=== PATIENT | female | born 1950 | race Hispanic/Latino ===

== ENCOUNTER 2018-07-07 14:52 | Outpatient (CLI) | payer BC | END 2018-07-07 14:53 | disposition home or self-care (01) | LOC: BICMAMMO 14:52 | PROVIDERS: ATTEND Family Medicine | DX: Z12.31 Encounter for screening mammogram for malignant neoplasm of breast (principal) | CPT/HCPCS: 77063; 77067 ==

== ENCOUNTER 2018-08-29 12:57 | Outpatient (CLI) | payer BC ==
--- NOTE | 2018-08-29 16:43 | RAD ---
PA AND LATERAL VIEWS CHEST: 08/28/18 HISTORY: Dyspnea. FINDINGS: Comparison made with exam of 01/03/18. The heart size is normal. The lungs are well expanded with evidence of old granulomatous disease and stable pleural and parenchymal scarring. No focal areas of consolidation, pneumothoraces or pleural e ffusions are identified. IMPRESSION: Stable exam. No acute process. POS: [facility]
== END 2018-08-29 12:58 | disposition home or self-care (01) ==
LOC: RAD 12:57
PROVIDERS: ATTEND Internal Medicine Critical Care Medicine
DX: R06.00 Dyspnea, unspecified (principal)
CPT/HCPCS: 71046

== ENCOUNTER 2018-11-06 15:03 | Emergency (ER) | payer BC ==
[2018-11-06 15:37] LABS: #Lymphocytes 1.5 thou/uL (1.20-3.40); #Monocytes 0.3 thou/uL (0.11-0.59); #Neutrophils 7.4 thou/uL (1.40-6.50); %Basophils 0.4 % (0.0-1.0); %Eosinophils 0.5 % (0.0-10.0); %Lymphocytes 15.8 % (21.0-51.0); %Neutrophils 80.2 % (42.0-75.0); Hemoglobin 11.5 g/dL (12.0-16.0); Mean Corpuscular HGB CONC 33.7 g/dL (32.0-36.0); Mean Platelet Volume 8.3 fL (7.4-10.4); Platelet Count 217 thou/uL (130-400); RBC Distribution Width 12.2 % (11.5-14.5); White Blood Cell (WBC) Count 9.3 thou/uL (4.8-10.8)
[2018-11-06 15:56] LABS: ALT (SGPT) 14 U/L (8-55); AST (SGOT) 24 U/L (5-34); Albumin 4.4 g/dL (3.4-4.8); Alkaline Phosphatase 92 U/L (40-150); Anion Gap 13 mmol/L (10-20); BUN (Urea Nitrogen) 20 mg/dL (9.8-20.1); Bilirubin, Total 1.2 mg/dL (0.2-1.2); Calc. Creatinine Clearance 0 mL/min (70-130); Calcium 9.2 mg/dL (7.8-10.44); Carbon Dioxide 28 mmol/L (23-31); Chloride 96 mmol/L (98-107); Estimated GFR-MDRD 44; Globulin 3.1 g/dL (2.4-3.5); Glucose 93 mg/dL (80-115); Lipase 5 U/L (8-78); Potassium 3.4 mmol/L (3.5-5.1); Protein, Total 7.5 g/dL (6.0-8.3); Sodium 134 mmol/L (136-145)
[2018-11-06] MEDS ORDERED: Ondansetron PF 4 MG/2 ML Vial ONE (16:07)
[2018-11-06] MEDS ORDERED: Morphine 4 MG/ML VIAL ONE (16:07)
[2018-11-06 16:08] LABS: Bilirubin Negative (Negative); Blood, Urine Small (Negative); Clarity CLEAR (Clear); Glucose, Urine (Dipstick) Negative (Negative); Leukocyte Negative (Negative); Nitrite Negative (Negative); Protein, Urine (Dipstick) Negative (Neg-Trace); Specific Gravity, Urine 1.015 (1.002-1.036); Urobilinogen 0.2 mg/dL (0.2-1.0)
[2018-11-06 16:11] LABS: Bacteria/HPF None Seen HPF (None Seen); Hyaline Casts/LPF 0-3 HYALINE CAST LPF (0-3 Hyaline); Squamous Epithelial 0-3 HPF (0-3); WBC/HPF 0-3 HPF (0-3)
[2018-11-06] MEDS ORDERED: Iopamidol 370 76% 50 ML VIAL FS ONE (17:03)
[2018-11-06] MEDS ORDERED: ISOVUE-370 76%-LOCM 1 ML ONE (17:03)
--- NOTE | 2018-11-06 19:12 | CT ---
CT ABDOMEN AND PELVIS WITH CONTRAST: HISTORY: Abdominal pain, right lower quadrant. TECHNIQUE: Contrast enhanced CT images of the abdomen and pelvis are obtained after the administration of IV and oral contrast. FINDINGS: Areas of patchy density are seen in the right middle lobe and portions of the anterior aspect of the left lower lobe. These may represent areas of pneumonia. The liver and spleen are unremarkable, except for some small calcified granulomas. The gallbladder has been surgically removed. The adrenal glands are unremarkable. The kidneys demonstrate no definite evidence of parenchymal masses. Mild right-sided hydronephrosis is seen. The right ureter, mid and distal aspects, is of normal caliber. There is an approximately 2 to 3 mm area of calcification seen on axial image #76. This is slightly more inferior than one would expect for the course of the right ureter, thus suggesting that this may be outside the right ureter; however, the associated mild right-sided hydronephrosis is suggestive t hat this calcification may be within the right ureter. It may be worth while to consider obtaining d elayed images of the pelvis, to help determine the course of this possible distal right ureteral calc ulus versus phlebolith. The patient has already received the IV contrast; therefore, delayed images would not require additional contrast. There does appear to be some inflammatory change in the terminal ileum. There is circumferential thi ckening of the cecum, concerning for a cecal inflammatory process (typhlitis). Other possibilities c ould include circumferential neoplasm of the cecum. Correlate with direct visualization. The SMA an d celiac are patent. No evidence of lymphadenopathy is seen. IMPRESSION: 1. Thickened terminal ileum with a circumferentially thickened cecum, concerning for inflammatory or neoplastic process. 2. Small area of calcification in the right pelvis, likely outside the right ureter; however, the pr oximal right ureter and renal pelvis are mildly dilated. POS: [facility]
== END 2018-11-06 19:45 | disposition home or self-care (01) ==
LOC: ERS 15:03
DX: K52.9 Noninfective gastroenteritis and colitis, unspecified (principal); I10 Essential (primary) hypertension; E78.5 Hyperlipidemia, unspecified; Z79.899 Other long term (current) drug therapy
CPT/HCPCS: 36415; 74177; 80053; 81003; 81015; 83690; 85025; 96361; 96374; 96375; J2270; J2405; Q9966; Q9967

== ENCOUNTER 2019-07-09 14:46 | Outpatient (CLI) | payer BC ==
--- NOTE | 2019-07-09 16:38 | MMO ---
Bilateral MAMMO Bilat Screen [facility]. CLINICAL HISTORY: Patient is 69 years old and is seen for screening. The patient has no family history of breast cancer. The patient has no personal history of cancer. VIEWS: The views performed were: bilateral craniocaudal with tomosynthesis and bilateral mediolateral oblique with tomosynthesis. FILMS COMPARED: The present examination has been compared to prior imaging studies performed at [facility] on 06/11/2015, 06/14/2016, 07/06/2017 and 07/07/2018. This study has been interpreted with the assistance of computer-aided detection. MAMMOGRAM FINDINGS: The breasts are heterogeneously dense, which could obscure a lesion on mammography. Benign calcifications are noted bilaterally. There are no suspicious masses, suspicious calcifications, or new areas of architectural distortion. IMPRESSION: THERE IS NO MAMMOGRAPHIC EVIDENCE OF MALIGNANCY. A ROUTINE FOLLOW-UP MAMMOGRAM IN 1 YEAR IS RECOMMENDED. THE RESULTS OF THIS EXAM WERE SENT TO THE PATIENT. ACR BI-RADS Category 2 - Benign finding MAMMOGRAPHY NOTE: 1. A negative mammogram report should not delay a biopsy if a dominant of clinically suspicious mass is present. 2. Approximately 10% to 15% of breast cancers are not detected by mammography. 3. Adenosis and dense breasts may obscure an underlying neoplasm. Reported by: STEVEN AMADOR MD Electonically Signed: [id number]
== END 2019-07-09 14:47 | disposition home or self-care (01) ==
LOC: BICMAMMO 14:46
PROVIDERS: ATTEND Family Medicine
DX: Z12.31 Encounter for screening mammogram for malignant neoplasm of breast (principal)
CPT/HCPCS: 77063; 77067

== ENCOUNTER 2019-09-18 12:59 | Outpatient (CLI) | payer BC ==
--- NOTE | 2019-09-18 13:47 | RAD ---
PA AND LATERAL CHEST: Date: 09/18/19 HISTORY: Dyspnea. COMPARISON: 08/29/18 exam. FINDINGS: Heart size within normal limits. Chronic lung changes with pleural changes in both lung apices, all a ppear stable. IMPRESSION: Chronic lung change. Stable chest. POS: [facility]
== END 2019-09-18 13:00 | disposition home or self-care (01) ==
LOC: BICRAD 12:59
PROVIDERS: ATTEND Internal Medicine Critical Care Medicine
DX: R06.00 Dyspnea, unspecified (principal)
CPT/HCPCS: 71046

== ENCOUNTER 2019-10-08 13:39 | Outpatient (CLI) | payer BC ==
--- NOTE | 2019-10-08 15:55 | RAD ---
PA AND LATERAL CHEST: HISTORY: Cough. Acute bronchitis. COMPARISON: 09/18/2019 FINDINGS: Heart size is within normal limits. Chronic lung changes are seen with bilateral apical pleural and p arenchymal lung changes, stable as compared to the prior exam. IMPRESSION: Stable chronic lung change. POS: [facility]
== END 2019-10-08 13:40 | disposition home or self-care (01) ==
LOC: BICRAD 13:39
PROVIDERS: ATTEND Family Medicine
DX: J20.9 Acute bronchitis, unspecified (principal); J98.4 Other disorders of lung
CPT/HCPCS: 71046

== ENCOUNTER 2019-10-11 13:44 | Outpatient (CLI) | payer BC ==
--- NOTE | 2019-10-11 15:13 | RAD ---
TWO VIEWS RIGHT RIBS: DATE: 10/11/2019. PROVIDED CLINICAL HISTORY: Chest pain status post injury. FINDINGS: There is no evidence for a displaced right central rib fracture, pleural fluid, or pneumothorax. Lynda pical pleural parenchymal scarring-type changes appear stable with respect to 10/08/2019. IMPRESSION: As above. POS: [facility]
== END 2019-10-11 13:45 | disposition home or self-care (01) ==
LOC: BICRAD 13:44
PROVIDERS: ATTEND Family Medicine
DX: R07.81 Pleurodynia (principal); J94.8 Other specified pleural conditions

== ENCOUNTER 2020-02-18 10:20 | Outpatient (CLI) | payer BC ==
--- NOTE | 2020-02-18 11:29 | RAD ---
PA AND LATERAL VIEWS CHEST: Date: 02/18/2020 HISTORY: History of bronchitis, cough. FINDINGS: Comparison made with exam of 10/08/2019. The heart size is normal. Chronic parenchymal changes in the lungs are again seen. A new infiltrate i s noted in the left lung base. No pneumothoraces or pleural effusions are seen. IMPRESSION: Chronic changes with new infiltrate in the left lung base suspicious for pneumonia. POS: [facility]
== END 2020-02-18 10:21 | disposition home or self-care (01) ==
LOC: BICRAD 10:20
PROVIDERS: ATTEND Family Medicine
DX: J20.9 Acute bronchitis, unspecified (principal); R91.8 Other nonspecific abnormal finding of lung field
CPT/HCPCS: 71046

== ENCOUNTER 2020-05-05 10:12 | Outpatient (CLI) | payer BC ==
--- NOTE | 2020-05-05 10:26 | RAD ---
EXAM: Chest 2 views: HISTORY: Pneumonia COMPARISON: 02/18/2020 FINDINGS: There is a normal-sized cardiomediastinal silhouette. Increased interstitial lung markings are prese nt. Biapical pleural thickening is seen. The bones are unremarkable. IMPRESSION: Stable chronic lung disease
== END 2020-05-05 10:13 | disposition home or self-care (01) ==
LOC: BICRAD 10:12
PROVIDERS: ATTEND Family Medicine
DX: J18.9 Pneumonia, unspecified organism (principal); J98.4 Other disorders of lung
CPT/HCPCS: 36415; 71046; 80053; 80061; 82306

== ENCOUNTER 2020-07-31 09:27 | Outpatient (CLI) | payer MEDICARE ==
--- NOTE | 2020-07-31 10:48 | MMO ---
Bilateral MAMMO Bilat Screen [facility]. CLINICAL HISTORY: Patient is 70 years old and is seen for screening. The patient has no family history of breast cancer. The patient has no personal history of cancer. VIEWS: The views performed were: bilateral craniocaudal with tomosynthesis and bilateral mediolateral oblique with tomosynthesis. FILMS COMPARED: The present examination has been compared to prior imaging studies performed at [facility] on 06/14/2016, 07/06/2017, 07/07/2018 and 07/09/2019. This study has been interpreted with the assistance of computer-aided detection. MAMMOGRAM FINDINGS: The breasts are heterogeneously dense, which could obscure a lesion on mammography. There are stable benign appearing calcifications seen in both breasts. There are no suspicious masses, suspicious calcifications, or new areas of architectural distortion. IMPRESSION: THERE IS NO MAMMOGRAPHIC EVIDENCE OF MALIGNANCY. A ROUTINE FOLLOW-UP MAMMOGRAM IN 1 YEAR IS RECOMMENDED. THE RESULTS OF THIS EXAM WERE SENT TO THE PATIENT. ACR BI-RADS Category 2 - Benign finding MAMMOGRAPHY NOTE: 1. A negative mammogram report should not delay a biopsy if a dominant of clinically suspicious mass is present. 2. Approximately 10% to 15% of breast cancers are not detected by mammography. 3. Adenosis and dense breasts may obscure an underlying neoplasm. Reported by: KELIN COLBY MD Electonically Signed: [id number]
== END 2020-07-31 09:28 | disposition home or self-care (01) ==
LOC: BICMAMMO 09:27
PROVIDERS: ATTEND Family Medicine
DX: Z12.31 Encounter for screening mammogram for malignant neoplasm of breast (principal)
CPT/HCPCS: 77063; 77067

== ENCOUNTER 2020-11-27 08:26 | Outpatient (CLI) | payer MEDICARE ==
--- NOTE | 2020-11-27 09:07 | RAD ---
EXAM: Chest PA and lateral: HISTORY: Dyspnea COMPARISON: 05/05/2020 FINDINGS: Heart size:Within normal limits. Lungs:Fairly marked worsening of patchy alveolar and nodular and interstitial parenchymal changes in the upper lung zones with some associated volume loss, possibilities include worsening bacterial pneumonia and atelectasis versus fungal or granulomatous disease including mycobacterium. No overt edema or pneumothorax or significant pleural effusion. IMPRESSION: Definite progressive disease in the upper lung zones bilaterally.
== END 2020-11-27 08:27 | disposition home or self-care (01) ==
LOC: BICRAD 08:26
PROVIDERS: ATTEND Internal Medicine Critical Care Medicine
DX: R06.00 Dyspnea, unspecified (principal); J98.4 Other disorders of lung
CPT/HCPCS: 71046

== ENCOUNTER 2020-12-24 09:10 | Outpatient (CLI) | payer MEDICARE | END 2020-12-24 09:11 | disposition home or self-care (01) | LOC: BICRAD 09:10 | PROVIDERS: ATTEND Internal Medicine Critical Care Medicine | DX: R06.00 Dyspnea, unspecified (principal); J92.9 Pleural plaque without asbestos; J98.4 Other disorders of lung; R91.8 Other nonspecific abnormal finding of lung field | CPT/HCPCS: 71046 ==

== ENCOUNTER 2021-05-05 08:04 | Outpatient (CLI) | payer MEDICARE | END 2021-05-05 08:05 | disposition home or self-care (01) | LOC: BICRAD 08:04 | PROVIDERS: ATTEND Internal Medicine Critical Care Medicine | DX: R06.00 Dyspnea, unspecified (principal); R91.8 Other nonspecific abnormal finding of lung field | CPT/HCPCS: 71046 ==

== ENCOUNTER 2021-05-22 09:24 | Outpatient (CLI) | payer MEDICARE | END 2021-05-22 09:25 | disposition home or self-care (01) | LOC: BICRAD 09:24 | PROVIDERS: ATTEND Internal Medicine Nephrology | DX: N18.30 Chronic kidney disease, stage 3 unspecified (principal); R05 Cough; E87.1 Hypo-osmolality and hyponatremia | CPT/HCPCS: 71046 ==

== ENCOUNTER 2021-08-03 14:59 | Outpatient (CLI) | payer MEDICARE | END 2021-08-03 15:00 | disposition home or self-care (01) | LOC: BICMAMMO 14:59 | PROVIDERS: ATTEND Family Medicine | DX: Z12.31 Encounter for screening mammogram for malignant neoplasm of breast (principal) | CPT/HCPCS: 77063; 77067 ==

== ENCOUNTER 2022-01-05 12:09 | Emergency (ER) | payer MEDICARE | END 2022-01-05 13:25 | disposition home or self-care (01) | LOC: ERS 12:09 | DX: M10.9 Gout, unspecified (principal); M25.561 Pain in right knee; M25.461 Effusion, right knee; I10 Essential (primary) hypertension ==

== ENCOUNTER 2022-01-29 08:50 | Outpatient (CLI) | payer MEDICARE | END 2022-01-29 08:51 | disposition home or self-care (01) | LOC: RAD 08:50 | PROVIDERS: ATTEND Internal Medicine Critical Care Medicine | DX: R06.00 Dyspnea, unspecified (principal) | CPT/HCPCS: 71046 ==

== ENCOUNTER 2022-05-12 13:30 | Outpatient (CLI) | payer MEDICARE | END 2022-05-12 13:31 | disposition home or self-care (01) | LOC: RAD 13:30 | PROVIDERS: ATTEND Internal Medicine Critical Care Medicine | DX: R06.00 Dyspnea, unspecified (principal) | CPT/HCPCS: 71046 ==

== ENCOUNTER 2022-08-06 08:42 | Outpatient (CLI) | payer MEDICARE | END 2022-08-06 08:43 | disposition home or self-care (01) | LOC: BICMAMMO 08:42 | PROVIDERS: ATTEND Family Medicine | DX: Z12.31 Encounter for screening mammogram for malignant neoplasm of breast (principal) | CPT/HCPCS: 77063; 77067 ==

== ENCOUNTER 2023-01-18 13:11 | Outpatient (CLI) | payer MEDICARE | END 2023-01-18 13:12 | disposition home or self-care (01) | LOC: RAD 13:11 | PROVIDERS: ATTEND Internal Medicine Critical Care Medicine | DX: R06.00 Dyspnea, unspecified (principal); J90 Pleural effusion, not elsewhere classified; R91.8 Other nonspecific abnormal finding of lung field | CPT/HCPCS: 71046 ==